=== PATIENT | female | born 1990 | race African-American/Black ===

== ENCOUNTER 2017-07-09 17:28 | Emergency (ER) | payer OTHER ==
[~2017-07-09] VITALS: Ht 162.6 cm; Wt 108.1 kg
[2017-07-09 18:25] VITALS: BP 120/73
--- NOTE | 2017-07-09 21:25 | NUR ---
PATIENT LEFT WITHOUT BEING SEEN BY DR. Robbins. NO FURTHER CARE PROVIDED FOR PATIENT.
== END 2017-07-09 21:25 | disposition left against medical advice (07) ==
LOC: MED 17:28
DX: R10.9 Unspecified abdominal pain (principal); Z53.21 Procedure and treatment not carried out due to patient leaving prior to being seen by health care provider